=== PATIENT | female | born 1945 | race Two or more races ===

== ENCOUNTER 2018-10-29 08:32 | Outpatient (CLI) | payer OTHER | END 2018-10-29 08:40 | disposition home or self-care (01) | LOC: RX STUDY 08:32 | DX: R13.19 Other dysphagia (principal) ==

== ENCOUNTER 2022-03-21 08:15 | Inpatient (IN) | payer OTHER ==
[~2022-03-21] VITALS: Ht 162.6 cm; Wt 72.6 kg
[2022-03-21] MEDS ORDERED: COZAAR50 MG PO (11:16)
[2022-03-26] MEDS ORDERED: CETIRIZINE HCL10 MG (11:37)
[2022-03-26] MEDS ORDERED: PANTOPRAZOLE SO40 MG (11:37)
[2022-03-26] MEDS ORDERED: GABAPENTIN600 MG (11:37)
[2022-03-26] MEDS ORDERED: LORATADINE10 MG (11:37)
[2022-03-26] MEDS ORDERED: IBUPROFEN600 MG (11:37)
[2022-03-26] MEDS ORDERED: CLONAZEPAM2 MG (11:38)
[2022-03-26] MEDS ORDERED: PENTOXIFYLLINE400 MG (11:38)
[2022-03-26] MEDS ORDERED: VITAMIN D325 MC2 (11:38)
[2022-03-26] MEDS ORDERED: HYDROCHLOROTH12.5 MG (11:38)
[2022-03-26] MEDS ORDERED: QUETIAPINE FUM100 MG (11:38)
[2022-03-26] MEDS ORDERED: RISPERIDONE0.5 MG (11:38)
[2022-03-26] MEDS ORDERED: LEVOTHYROXINE150 MCG (11:38)
[2022-03-26] MEDS ORDERED: GAVISCON ES TA1 EACH (11:38)
[2022-03-28] MEDS ORDERED: ELIQUIS2.5 MG PO (15:21)
[2022-03-28] MEDS ORDERED: DUI500 PO (15:21)
[2022-03-28] MEDS ORDERED: PERCOCET 5-3251 EACH PO (15:21)
== END 2022-03-28 22:53 | disposition home or self-care (01) | DRG 470 ==
LOC: SURH 03-26 07:03 → O/R 03-26 07:03 → SURH 03-26 08:15
PROVIDERS: ADMIT Orthopaedic Surgery; ATTEND Orthopaedic Surgery
PROC: 0SRD0J9 Replacement of Left Knee Joint with Synthetic Substitute, Cemented, Open Approach (ICD-10-PCS; principal; 2022-03-26 13:30)
DX: M17.12 Unilateral primary osteoarthritis, left knee (principal); D62 Acute posthemorrhagic anemia; E66.01 Morbid (severe) obesity due to excess calories; I10 Essential (primary) hypertension; Z96.652 Presence of left artificial knee joint; Z20.822 Contact with and (suspected) exposure to COVID-19

== ENCOUNTER 2022-05-02 11:08 | Outpatient (CLI) | payer OTHER ==
[~2022-05-02 11:08] MED LIST: CETIRIZINE HCL10 MG; CLONAZEPAM2 MG; COZAAR50 MG PO; DUI500 PO; ELIQUIS2.5 MG PO; GABAPENTIN600 MG; GAVISCON ES TA1 EACH; HYDROCHLOROTH12.5 MG; IBUPROFEN600 MG; LEVOTHYROXINE150 MCG; LORATADINE10 MG; PANTOPRAZOLE SO40 MG; PENTOXIFYLLINE400 MG; PERCOCET 5-3251 EACH PO; QUETIAPINE FUM100 MG; RISPERIDONE0.5 MG; VITAMIN D325 MC2
== END 2022-05-02 11:16 | disposition home or self-care (01) ==
LOC: MAMO-SONO 11:08
DX: Z09 Encounter for follow-up examination after completed treatment for conditions other than malignant neoplasm (principal); Z12.39 Encounter for other screening for malignant neoplasm of breast; I10 Essential (primary) hypertension; Z13.29 Encounter for screening for other suspected endocrine disorder; Z13.220 Encounter for screening for lipoid disorders; Z13.1 Encounter for screening for diabetes mellitus; Z13.6 Encounter for screening for cardiovascular disorders; N39.0 Urinary tract infection, site not specified; E55.9 Vitamin D deficiency, unspecified

== ENCOUNTER 2025-01-04 08:21 | Outpatient (CLI) | payer OTHER | END 2025-01-04 08:25 | disposition home or self-care (01) | LOC: MAMO-SONO 08:21 | DX: I10 Essential (primary) hypertension (principal); Z09 Encounter for follow-up examination after completed treatment for conditions other than malignant neoplasm; M85.80 Other specified disorders of bone density and structure, unspecified site; Z13.1 Encounter for screening for diabetes mellitus; Z13.6 Encounter for screening for cardiovascular disorders; Z13.820 Encounter for screening for osteoporosis; Z12.31 Encounter for screening mammogram for malignant neoplasm of breast; Z13.220 Encounter for screening for lipoid disorders; Z13.29 Encounter for screening for other suspected endocrine disorder; E55.9 Vitamin D deficiency, unspecified ==

== ENCOUNTER 2025-01-19 08:15 | Inpatient (IN) | payer OTHER ==
[~2025-01-19] VITALS: Ht 162.6 cm; Wt 76.2 kg
[2025-01-19 08:57] LABS: BASO % 0.9 % (0.1-1.2); EOS # 0.28 (0.04-0.54); EOS % 4.3 % (0.7-7.0); LYMPH # 2.71 (1.18-3.74); LYMPH % 41.6 % (19.3-53.1); MEAN PLATELET VOLUME 11.00 fl (9.4-12.4); MONO # 0.63 (0.24-0.82); MONO % 9.7 % (4.7-12.5); NEUT # 2.82 (1.56-6.13); NEUT % 43.3 % (34.0-71.1); RED CELL DISTRIBUTION WIDTH 13.9 % (11.6-14.4)
[2025-01-19 08:59] LABS: URINE APPEARANCE Clear; URINE BILIRRUBIN Negative (NEGATIVE); URINE BLOOD Negative; URINE COLOR Yellow; URINE GLUCOSE Negative (NEGATIVE); URINE KETONE Negative (NEGATIVE); URINE LEUKOCYTE Small; URINE NITRATE Negative; URINE PROTEIN Negative (NEGATIVE); URINE UROBILINOGEN 0.2 E.U./dl
[2025-01-19 09:00] VITALS: BP 145/84
[2025-01-19 09:03] LABS: URINE BACTERIA 46.7 uL (0.0-1933); URINE EPITHELIAL CELLS 5.2 uL (0.0-38.8); URINE RBC 2.4 uL (0.0-20.8); URINE WBC 5.2 uL (0.0-23.2)
[2025-01-19 09:05] LABS: URINE CAST 0.00 uL (0.0-1.40)
[2025-01-19 09:12] LABS: COVID-19 AG NEGATIVE (NEGATIVE)
[2025-01-19 09:27] LABS: INR 0.96
[2025-01-19 10:03] LABS: ALT/SGPT 35.0 U/L (12-78); AST/SGOT 24.0 U/L (15-37); BILIRUBIN TOTAL 0.43 mg/dL (0.3-1.2); BUN CREA RATIO 17.0 (7.0-25.0); CHOL HDL RATIO 2.9 (0-5.0); CREATININE SERUM 0.99 mg/dL (0.55-1.02); GFR 53.97; GLOBULINA 3.5 G/DL (2.4-3.5); GLUCOSE FASTING 86.0 mg/dL (65-100); HDL 50.0 mg/dl (40-60); LDL 70.0 mg/dl (0-130); OSMOLALITY SERUM 288.0 MOSM/KG (275-295); VLDL 23.0 (0-39)
[2025-01-19 10:17] LABS: RH POSITIVE
[2025-02-01] MEDS ORDERED: FAMOTIDINE20 MG (13:57)
[2025-02-01] MEDS ORDERED: ENALAPRILAT DIHYDRATE 1.25 MG/ML VIAL IV PRN (14:45)
[2025-02-01] MEDS ORDERED: POVIDONE-IODINE 118 ML BOTT TOP ONE (18:15)
[2025-02-01] MEDS ORDERED: CEFAZOLIN SODIUM 1,000 MG VIAL IV ONE (18:15)
[2025-02-01] MEDS ORDERED: TRANEXAMIC ACID 100MG/1ML (1000MG) AMPUL IH ONE ×2 (18:15)
[2025-02-01] MEDS ORDERED: LIDOCAINE HCL 1%/EPINEPHRINE 20ML VIAL IJ ONE (18:30)
[2025-02-01] MEDS ORDERED: BUPIVACAINE HCL 30 ML VIAL IJ ONE (18:30)
[2025-02-01] MEDS ORDERED: VANCOMYCIN HCL 1,000 MG VIAL IR ONE (18:30)
[2025-02-01] MEDS ORDERED: SUGAMMADEX SODIUM 200 MG/2 ML VIAL IV ONE (19:15)
[2025-02-01] MEDS ORDERED: OxyCODONE HCL 5 MG TABLET (ROXICODONE) PO PRN (21:15)
[2025-02-01] MEDS ORDERED: ONDANSETRON HCL 2 MG/ML VIAL IV PRN (21:15)
[2025-02-01] MEDS ORDERED: SODIUM CHLORIDE 0.45 % 1,000 ML IV SCH (21:15)
[2025-02-01] MEDS ORDERED: MORPHINE SULFATE 4 MG/ML CARTRIDGE IV PRN (21:15)
[2025-02-01] MEDS ORDERED: MORPHINE SULFATE 4 MG/ML VIAL IV ONE (21:50)
[2025-02-01 22:28] VITALS: BP 134/78; O2SAT 94
[2025-02-02] MEDS ORDERED: ACETAMINOPHEN 500 MG GEL..CAP PO SCH
[2025-02-02 00:30] VITALS: BP 129/81; O2SAT 98
[2025-02-02] MEDS ORDERED: GABAPENTIN 300 MG CAPSULE PO SCH (01:00)
[2025-02-02] MEDS ORDERED: CEFAZOLIN SODIUM 1,000 MG VIAL IV SCH (01:00)
[2025-02-02 07:22] LABS: BASO % 0.4 % (0.1-1.2); EOS # 0.00 (0.04-0.54); EOS % 0.0 % (0.7-7.0); LYMPH # 1.36 (1.18-3.74); LYMPH % 12.2 % (19.3-53.1); MEAN PLATELET VOLUME 11.50 fl (9.4-12.4); MONO # 0.94 (0.24-0.82); MONO % 8.5 % (4.7-12.5); NEUT # 8.75 (1.56-6.13); NEUT % 78.6 % (34.0-71.1); RED CELL DISTRIBUTION WIDTH 13.5 % (11.6-14.4)
[2025-02-02] MEDS ORDERED: ELIQUIS2.5 MG PO (08:38)
[2025-02-02] MEDS ORDERED: PERCOCET 5-3251 EACH PO (08:38)
[2025-02-02] MEDS ORDERED: DUI500 PO (08:38)
[2025-02-02] MEDS ORDERED: LOSARTAN/HYDROCHLOROTHIAZIDE 1 UDTAB TABLET PO SCH (09:00)
[2025-02-02] MEDS ORDERED: SENNOSIDES 1 TAB TABLET PO SCH (09:00)
[2025-02-02] MEDS ORDERED: APIXABAN 2.5 MG TABLET PO SCH (09:00)
[2025-02-02 09:58] VITALS: BP 116/77; O2SAT 95
[2025-02-02 14:32] LABS: COVID-19 AG NEGATIVE (NEGATIVE)
[2025-02-02 16:00] VITALS: BP 146/84; O2SAT 96
[2025-02-03] MEDS ORDERED: IRON FUM,PS/FOLIC ACID/VITC/B3 1 CAP CAPSULE PO SCH (09:00)
== END 2025-02-02 21:00 | DRG 470 ==
LOC: SURH 01-25 07:00 → O/R 02-01 13:07 → SURH 02-01 18:34
PROVIDERS: ADMIT Orthopaedic Surgery; ATTEND Orthopaedic Surgery
PROC: 0MNN0ZZ Release Right Knee Bursa and Ligament, Open Approach (ICD-10-PCS; 2025-02-01)
PROC: 0QUD0JZ Supplement Right Patella with Synthetic Substitute, Open Approach (ICD-10-PCS; 2025-02-01)
PROC: 0SRC0JZ Replacement of Right Knee Joint with Synthetic Substitute, Open Approach (ICD-10-PCS; principal; 2025-02-01 13:45)
DX: M17.11 Unilateral primary osteoarthritis, right knee (principal); M22.11 Recurrent subluxation of patella, right knee

== ENCOUNTER 2025-01-20 09:07 | Outpatient (CLI) | payer OTHER | END 2025-01-20 09:08 | disposition home or self-care (01) | LOC: NUCLEAR 09:07 | DX: M85.80 Other specified disorders of bone density and structure, unspecified site (principal); Z13.820 Encounter for screening for osteoporosis; M81.0 Age-related osteoporosis without current pathological fracture ==